=== PATIENT | female | born 1990 | race Caucasian/White ===

== ENCOUNTER → 2017-10-23 | Outpatient (CLI) | payer OTHER ==
[~2017-10-23] MED LIST: ACET500 PO; ALBU90OI61 INH; AMOCLA875 PO; AZIT250 PO; BENZ100A PO; CEPH500 PO; CLIN300 PO; CODACE30 PO; Cipro500 MG PO; DIAZ5 PO; DOXY100 PO; Diflucan100 MG PO; FLUO10 PO; HYDACE5 PO; IBUP600 PO; IBUP800 PO; Keflex500 MG PO; META800 PO; MULVITMINE PO; Macrobid 100 M100 MG PO; NAPR375 PO; OXYACE5T PO; PROM25 PO; Percocet 5-3251 EACH PO; Prednisone20 MG PO; Pyridium200 MG PO; RANI150 PO; RXCODACET PO; RXHYDACE PO; RXHYDMOR2 PO; RXOXYACE PO; RXPROM25 PO; Sudogest60 MG PO; TOBR.3OPSO OP; Zofran Odt4 MG SL; Zofran8 MG PO
[2017-10-24 10:50] LABS: Source VAG/CERVIX
[2017-10-24 11:22] LABS: Candida species (DNA Probe) Negative (NEGATIVE); G. vaginalis (DNA Probe) Positive (NEGATIVE); T. vaginalis (DNA Probe) Negative (NEGATIVE)
== END ==
LOC: LAB SHORT 15:13 → LAB 15:13
PROVIDERS: Obstetrics & Gynecology
DX: N76.0 Acute vaginitis (principal)
CPT/HCPCS: 87480; 87510; 87660; G0123

== ENCOUNTER 2018-05-25 20:43 | Emergency (ER) | payer OTHER ==
[~2018-05-25] VITALS: Ht 175.3 cm; Wt 70.3 kg
[2018-05-25 21:46] LABS: Source, Urine Clean Catch
[2018-05-25 21:48] LABS: Bilirubin, Urine Neg (Neg); Blood, Urine 1+ (Neg); Glucose Qualitative, Urine Neg (Neg); Ketones, Urine Neg (Neg); Leukocyte Esterase, Urine Neg (Neg); Nitrite, Urine Neg (Neg); Protein, Urine Neg (Neg); Urobilinogen, Urine NORM (Normal)
[2018-05-25 21:56] LABS: Appearance, Urine Clear (Clear); Color, Urine Yellow (P-Yellow)
[2018-05-25 21:57] LABS: Bacteria Not Seen /hpf; Red Blood Cells, Urine 0-2 /hpf (0-2); Squamous Epithelial Cells Not Seen /hpf (Few); White Blood Cells, Urine Not Seen /hpf (0-5)
[2018-05-25 21:58] LABS: BASOPHILS ABSOLUTE AUTO 0.03 K/mm3 (0.00-0.23); BASOPHILS PERCENT AUTO 1 % (0-2); EOSINOPHILS ABSOLUTE AUTO 0.07 K/mm3 (0.00-0.68); EOSINOPHILS PERCENT AUTO 1 % (0-6); Hematocrit 38.4 % (33.0-51.0); IMMATURE GRAN ABSOLUTE AUTO 0.02 K/mm3 (0.00-0.10); IMMATURE GRAN PERCENT AUTO 0 % (0-1); LYMPHOCYTES ABSOLUTE AUTO 2.05 K/mm3 (0.84-5.20); LYMPHOCYTES PERCENT AUTO 32 % (21-46); MONOCYTES PERCENT AUTO 8 % (4-13); Mean Corpuscular HGB 30.7 pg (26.0-34.0); Mean Corpuscular HGB Conc 33.9 g/dL (31.5-36.5); Mean Corpuscular Volume 91 fL (80-100); NEUTROPHILS ABSOLUTE AUTO 3.68 K/mm3 (1.96-9.15); NEUTROPHILS PERCENT AUTO 58 % (41-73); Platelet Count 174 K/mm3 (150-400); RDW Coefficient Variation 11.9 % (11.7-14.2); RDW Standard Deviation 39.8 fL (35.1-46.3); Red Blood Cell Count 4.24 M/mm3 (3.80-5.20); White Blood Cell Count 6.35 K/mm3 (4.00-11.30)
[2018-05-25 22:32] LABS: Alanine Aminotransfer (ALT/SGP 16 U/L (12-78); Albumin, Blood 4.3 g/dL (3.4-5.0); Albumin/Globulin Ratio 1.3 (0.8-1.8); Alk Phos 55 U/L (50-136); Anion Gap 7 mmol/L (6-16); Aspartate Aminotrans (AST/SGOT 13 U/L (12-37); Bilirubin, Total 0.6 mg/dL (0.1-1.0); Blood Urea Nitrogen 9 mg/dL (8-24); Bun/Creatinine Ratio 11.4 (12.0-20.0); CO2, Blood 26 mmol/L (21-32); Calcium, Blood 8.5 mg/dL (8.5-10.1); Chloride, Blood 110 mmol/L (98-108); Creatinine, Blood 0.79 mg/dL (0.40-1.00); Globulin, Blood 3.2 g/dL (2.2-4.0); Glomerular Filtration Rate >60 (60-); Glucose, Blood 87 mg/dL (70-99); Potassium, Blood 3.1 mmol/L (3.5-5.5); Sodium, Blood 143 mmol/L (136-145); Total Protein, Blood 7.5 g/dL (6.4-8.2)
== END 2018-05-25 23:19 | disposition short-term general hospital (02) ==
LOC: ER 20:43
PROVIDERS: Physician Assistant
DX: R29.898 Other symptoms and signs involving the musculoskeletal system (principal); L30.9 Dermatitis, unspecified; R10.9 Unspecified abdominal pain; F17.210 Nicotine dependence, cigarettes, uncomplicated
CPT/HCPCS: 36415; 51798; 80053; 81001; 85025; 99285

== ENCOUNTER 2018-09-26 17:14 | Emergency (ER) | payer OTHER ==
[~2018-09-26] VITALS: Ht 175.3 cm; Wt 71.7 kg
[2018-09-26] MEDS ORDERED: DICL25ER PO (17:29)
[2018-09-26] MEDS ORDERED: BUPR150ER PO (17:29)
[2018-09-26] MEDS ORDERED: GABA300 PO (17:30)
[2018-09-26 17:58] LABS: BASOPHILS ABSOLUTE AUTO 0.02 K/mm3 (0.00-0.23); BASOPHILS PERCENT AUTO 0 % (0-2); EOSINOPHILS ABSOLUTE AUTO 0.06 K/mm3 (0.00-0.68); EOSINOPHILS PERCENT AUTO 1 % (0-6); Hematocrit 41.5 % (33.0-51.0); IMMATURE GRAN ABSOLUTE AUTO 0.03 K/mm3 (0.00-0.10); IMMATURE GRAN PERCENT AUTO 0 % (0-1); LYMPHOCYTES ABSOLUTE AUTO 1.73 K/mm3 (0.84-5.20); LYMPHOCYTES PERCENT AUTO 24 % (21-46); MONOCYTES ABSOLUTE AUTO 0.53 K/mm3 (0.16-1.47); MONOCYTES PERCENT AUTO 7 % (4-13); Mean Corpuscular HGB 30.9 pg (26.0-34.0); Mean Corpuscular HGB Conc 33.7 g/dL (31.5-36.5); Mean Corpuscular Volume 92 fL (80-100); Mean Platelet Volume 8.6 fL (9.1-12.4); NEUTROPHILS ABSOLUTE AUTO 4.85 K/mm3 (1.96-9.15); NEUTROPHILS PERCENT AUTO 67 % (41-73); Platelet Count 211 K/mm3 (150-400); RDW Coefficient Variation 11.9 % (11.7-14.2); RDW Standard Deviation 39.9 fL (35.1-46.3); Red Blood Cell Count 4.53 M/mm3 (3.80-5.20); White Blood Cell Count 7.22 K/mm3 (4.00-11.30)
[2018-09-26 18:28] LABS: Alanine Aminotransfer (ALT/SGP 25 U/L (12-78); Albumin, Blood 4.7 g/dL (3.4-5.0); Albumin/Globulin Ratio 1.3 (0.8-1.8); Alk Phos 59 U/L (50-136); Anion Gap 8 mmol/L (6-16); Aspartate Aminotrans (AST/SGOT 12 U/L (12-37); Bilirubin, Total 0.7 mg/dL (0.1-1.0); Blood Urea Nitrogen 8 mg/dL (8-24); Bun/Creatinine Ratio 8.7 (12.0-20.0); CO2, Blood 25 mmol/L (21-32); Calcium, Blood 9.1 mg/dL (8.5-10.1); Chloride, Blood 107 mmol/L (98-108); Creatinine, Blood 0.92 mg/dL (0.40-1.00); Globulin, Blood 3.6 g/dL (2.2-4.0); Glomerular Filtration Rate >60 (60-); Glucose, Blood 55 mg/dL (70-99); Potassium, Blood 3.3 mmol/L (3.5-5.5); Sodium, Blood 140 mmol/L (136-145); Total Protein, Blood 8.3 g/dL (6.4-8.2)
== END 2018-09-26 19:30 | disposition left against medical advice (07) ==
LOC: ER 17:14
PROVIDERS: Physician Assistant
DX: R29.898 Other symptoms and signs involving the musculoskeletal system (principal); M48.061 Spinal stenosis, lumbar region without neurogenic claudication; F17.210 Nicotine dependence, cigarettes, uncomplicated; Z88.2 Allergy status to sulfonamides; Z79.899 Other long term (current) drug therapy
CPT/HCPCS: 80053; 85025; 96365; 99283-25; J1100

== ENCOUNTER → 2018-12-10 | Outpatient (CLI) | payer OTHER ==
[~2018-12-10] MED LIST changes: +BUPR150ER PO; +DICL25ER PO; +GABA300 PO; +HYDHCL25 PO; +KETO10 PO
[2018-12-10 09:58] LABS: Source, Urine Clean Catch
[2018-12-10 12:42] LABS: Blood, Urine 5+ (Neg); Glucose Qualitative, Urine Neg (Neg); Ketones, Urine Neg (Neg); Leukocyte Esterase, Urine 3+ (Neg); Nitrite, Urine Pos (Neg); Protein, Urine 3+ (Neg); Urobilinogen, Urine 4+ (Normal)
[2018-12-10 12:56] LABS: Bilirubin, Urine 1+ (Neg); Color, Urine Red (P-Yellow)
[2018-12-10 12:57] LABS: Appearance, Urine Hazy (Clear)
[2018-12-10 12:59] LABS: Red Blood Cells, Urine TNTC /hpf (0-2); Squamous Epithelial Cells Rare /hpf (Few)
[2018-12-10 13:00] LABS: Bacteria Few /hpf
== END | disposition home or self-care (01) ==
LOC: LAB 09:57 → LAB SHORT 09:57
PROVIDERS: Obstetrics & Gynecology
DX: R30.0 Dysuria (principal)
CPT/HCPCS: 81001; 87086

== ENCOUNTER 2021-09-26 15:02 | Emergency (ER) | payer OTHER ==
[~2021-09-26] VITALS: Ht 175.3 cm; Wt 97.5 kg
== END 2021-09-26 16:50 | disposition other institution (70) ==
LOC: ER 15:02
DX: S52.124A Nondisplaced fracture of head of right radius, initial encounter for closed fracture (principal); F17.210 Nicotine dependence, cigarettes, uncomplicated; Z88.2 Allergy status to sulfonamides; Z79.899 Other long term (current) drug therapy; V00.128A Other non-in-line roller-skating accident, initial encounter
CPT/HCPCS: 73080; J1885

== ENCOUNTER 2023-04-09 18:38 | Emergency (ER) | payer OTHER ==
[~2023-04-09] VITALS: Ht 175.3 cm; Wt 97.1 kg
[2023-04-09 18:51] VITALS: BP 113/74
[2023-04-09] MEDS ORDERED: BUPRENORPHIN-N1 EAC1 SL (18:53)
[2023-04-09 19:12] LABS: BASOPHILS ABSOLUTE AUTO 0.02 K/mm3 (0.00-0.23); BASOPHILS PERCENT AUTO 0 % (0-2); EOSINOPHILS ABSOLUTE AUTO 0.14 K/mm3 (0.00-0.68); EOSINOPHILS PERCENT AUTO 2 % (0-6); Hematocrit 37.1 % (33.0-51.0); Hemoglobin 12.8 g/dL (11.5-16.0); IMMATURE GRAN ABSOLUTE AUTO 0.02 K/mm3 (0.00-0.10); IMMATURE GRAN PERCENT AUTO 0 % (0-1); LYMPHOCYTES ABSOLUTE AUTO 1.91 K/mm3 (0.84-5.20); LYMPHOCYTES PERCENT AUTO 31 % (21-46); MONOCYTES ABSOLUTE AUTO 0.42 K/mm3 (0.16-1.47); MONOCYTES PERCENT AUTO 7 % (4-13); Mean Corpuscular HGB 30.4 pg (26.0-34.0); Mean Corpuscular HGB Conc 34.5 g/dL (31.5-36.5); Mean Corpuscular Volume 88 fL (80-100); Mean Platelet Volume 8.7 fL (9.1-12.4); NEUTROPHILS PERCENT AUTO 59 % (41-73); Platelet Count 227 K/mm3 (150-400); RDW Coefficient Variation 11.7 % (11.7-14.2); RDW Standard Deviation 37.4 fL (35.1-46.3); Red Blood Cell Count 4.21 M/mm3 (3.80-5.20); White Blood Cell Count 6.11 K/mm3 (4.00-11.30)
[2023-04-09 19:42] LABS: Albumin, Blood 3.7 g/dL (3.4-5.0); Albumin/Globulin Ratio 1.2 (0.8-1.8); Bilirubin, Total 0.6 mg/dL (0.1-1.0); Bun/Creatinine Ratio 9.8 (12.0-20.0); Calcium, Blood 9.3 mg/dL (8.5-10.1); Creatinine, Blood 0.92 mg/dL (0.40-1.00); Globulin, Blood 3.1 g/dL (2.2-4.0); Potassium, Blood 3.5 mmol/L (3.5-5.5); Total Protein, Blood 6.8 g/dL (6.4-8.2)
== END 2023-04-09 19:56 | disposition left against medical advice (07) ==
LOC: ER 18:38
PROVIDERS: Emergency Medicine
DX: R11.2 Nausea with vomiting, unspecified (principal); R19.7 Diarrhea, unspecified; R51.9 Headache, unspecified; Z53.21 Procedure and treatment not carried out due to patient leaving prior to being seen by health care provider
CPT/HCPCS: 80053; 83690; 85025

== ENCOUNTER → 2024-03-25 | Outpatient (CLI) | payer OTHER ==
[~2024-03-25] MED LIST changes: +BUPRENORPHIN-N1 EAC1 SL
[2024-03-25 19:33] LABS: Candida Group, PCR NOT DETECTED (NOT DETECT); Candida glabrata-krusei, PCR NOT DETECTED (NOT DETECT)
[2024-03-25 19:55] LABS: Bacterial Vaginosis PCR Positive (NEGATIVE)
== END | disposition home or self-care (01) ==
LOC: LAB SHORT 17:16
PROVIDERS: Family Medicine
DX: Z01.419 Encounter for gynecological examination (general) (routine) without abnormal findings (principal); N89.8 Other specified noninflammatory disorders of vagina
CPT/HCPCS: 87481; 87661; 87801

== ENCOUNTER 2024-08-23 16:15 | Emergency (ER) | payer OTHER ==
[~2024-08-23] VITALS: Ht 175.3 cm; Wt 97.5 kg
[2024-08-23 16:38] VITALS: BP 167/99
[2024-08-23] MEDS ORDERED: LevoFLOXacin 750 MG Tab PO ONE (18:25)
[2024-08-23] MEDS ORDERED: Ketorolac Tromethamine 15mg Vial IM ONE (18:25)
[2024-08-23] MEDS ORDERED: LEVO750 PO (18:32)
== END 2024-08-23 18:43 | disposition home or self-care (01) ==
LOC: ER 16:15
DX: H66.92 Otitis media, unspecified, left ear (principal); F17.210 Nicotine dependence, cigarettes, uncomplicated; Z88.2 Allergy status to sulfonamides; Z79.899 Other long term (current) drug therapy
CPT/HCPCS: 96372; 99282-25; A9270; J1885

== ENCOUNTER → 2025-04-22 | Outpatient (CLI) | payer OTHER ==
[~2025-04-22] MED LIST changes: +LEVO750 PO
[2025-04-22 21:02] LABS: Bacterial Vaginosis PCR Negative (NEGATIVE); Candida Group, PCR NOT DETECTED (NOT DETECT); Candida glabrata-krusei, PCR NOT DETECTED (NOT DETECT)
== END ==
LOC: LAB 17:23 → LAB SHORT 17:23
PROVIDERS: Family Medicine
DX: E28.2 Polycystic ovarian syndrome (principal); B97.7 Papillomavirus as the cause of diseases classified elsewhere
CPT/HCPCS: 81515; 87624; G0145